=== PATIENT | female | born 1970 | race Two or more races ===

== ENCOUNTER 2017-03-31 14:10 | Emergency (ER) | payer MEDICAID ==
[~2017-03-31] VITALS: Ht 167.6 cm; Wt 125.5 kg
[2017-03-31 14:13] VITALS: BP 146/91
[2017-03-31] MEDS ORDERED: KETOROLAC 30 MG/1 ML IM ONE (15:30)
[2017-03-31] MEDS ORDERED: KETOROLAC 30 MG/1 ML ONE (15:36)
== END 2017-03-31 15:56 | disposition home or self-care (01) ==
LOC: ED 15:50
DX: S43.422A Sprain of left rotator cuff capsule, initial encounter (principal); X58.XXXA Exposure to other specified factors, initial encounter; Y93.89 Activity, other specified; Y99.8 Other external cause status; Y92.89 Other specified places as the place of occurrence of the external cause
CPT/HCPCS: 73030; 96372; 99284; J1885

== ENCOUNTER 2020-02-06 09:23 | Emergency (ER) | payer MEDICAID, OTHER ==
[~2020-02-06] VITALS: Ht 165.1 cm; Wt 132.4 kg
--- NOTE | 2020-02-06 09:51 | NUR ---
PROVIDER AT BEDSIDE OBTAINING COVID SAMPLE FOR LAB
[2020-02-06] MEDS ORDERED: IBUPROFEN 800 MG TABLET PO ONE (10:00)
[2020-02-06] MEDS ORDERED: ACETAMINOPHEN 500 MG TABLET PO ONE (10:00)
[2020-02-06] MEDS ORDERED: IBUPROFEN 200 MG TABLET ONE (10:22)
[2020-02-06] MEDS ORDERED: ACETAMINOPHEN 500 MG TABLET ONE (10:22)
[2020-02-06] MEDS ORDERED: IBUPROFEN 600 MG TABLET ONE (10:23)
--- NOTE | 2020-02-06 10:35 | NUR ---
MEDICATED FOR BODYACHES AND OHARA
[2020-02-06 10:54] VITALS: BP 124/67
--- NOTE | 2020-02-06 11:25 | NUR ---
AMBULATED WITHOUT ASSISTANCE WITH INCREASE RR BRIEFLY BUT RETURNED TO BASELINE UPON RETURNING TO [facility].
== END 2020-02-06 12:03 | disposition home or self-care (01) ==
LOC: ED 10:36
DX: U07.1 COVID-19 (principal); J18.0 Bronchopneumonia, unspecified organism; J06.9 Acute upper respiratory infection, unspecified; R94.31 Abnormal electrocardiogram [ECG] [EKG]
CPT/HCPCS: 71045; 87635; 93005; 99285